=== PATIENT | male | born 1975 | race Caucasian/White ===

== ENCOUNTER → 2018-09-23 | Outpatient (CLI) | payer MEDICAID ==
--- NOTE | 2018-09-23 12:52 | XR ---
EXAMINATION TYPE: XR chest 2V DATE OF EXAM: 09/23/2018 COMPARISON: Prior chest x-ray 09/27/2009 HISTORY: Chest pain TECHNIQUE: Frontal and lateral views of the chest are obtained. FINDINGS: There is no focal air space opacity, pleural effusion, or pneumothorax seen. The cardiac silhouette size is within normal limits. Biapical pleural thickening is stable. Prominent lung volum es could be indicative of underlying COPD. The osseous structures are intact. IMPRESSION: No acute cardiopulmonary process.
--- NOTE | 2018-09-23 13:11 | ECHOS ---
STRESS ECHOCARDIOGRAM DATE OF SERVICE: 09/23/2018 INDICATIONS: Chest pain. MEDICATIONS: BASELINE HEART RATE: 60 BASELINE BLOOD PRESSURE: 110/67 MAXIMUM HEART RATE: 163 MAXIMUM BLOOD PRESSURE: 160/78 85% MPHR: 152 100% MPHR: 179 METS: 12.1 MAXIMUM STAGE REACHED: IV TOTAL EXERCISE TIME: 12 minutes CLINICAL INFORMATION: Baseline rhythm is a sinus mechanism, rate of 60, RSR prime. Baseline blood pressure 110/67 mmHg. Patient exercised on [employer] protocol for 12 minutes reaching peak rate 163 beats per minute which is equal to 91% maximum predicted heart rate. Peak blood pressure 160/78 mmHg. Test was terminated secondary to fatigue. There was no chest pain. Electrocardiograph monitoring revealed no evidence of diagnostic ischemic ST deviation. Baseline echocardiogram revealed normal wall motion. At peak exercise, there was normal wall motion augmentation with no hypokinesis or dyskinesis. CONCLUSION: 1. Good exercise tolerance with normal electrocardiographic response to exercise. 2. Normal stress echocardiogram with no evidence of stress induced ischemia. MMODL / IJN: [id number] /
== END ==
LOC: RADNMMAIN 10:06
PROVIDERS: ATTEND Nurse Practitioner Family
DX: R07.9 Chest pain, unspecified (principal)
CPT/HCPCS: 71046; 93351